=== PATIENT | male | born 1940 | race Two or more races ===

== ENCOUNTER 2018-12-05 09:39 | Emergency (ER) | payer MEDICARE, MEDICAID ==
[~2018-12-05] VITALS: Ht 165.1 cm; Wt 70.1 kg
[2018-12-05 09:44] VITALS: BP 164/78
== END 2018-12-05 11:53 | disposition home or self-care (01) ==
LOC: ED 11:42
DX: F03.90 Unspecified dementia, unspecified severity, without behavioral disturbance, psychotic disturbance, mood disturbance, and anxiety (principal)
CPT/HCPCS: 36415; 80053; 81003; 83690; 85025; 99283